=== PATIENT | female | born 1965 | race Two or more races ===

== ENCOUNTER → 2024-03-19 | Outpatient (CLI) | payer BC, SELFPAY ==
--- NOTE | 2024-03-19 08:15 | XR_ITS ---
Examination: Screening digital mammography, bilateral Computer aided detection 3-D breast Tomosynthesis, bilateral Date and time of exam: March 19, 2024 0805 hours Compared to mammograms dating to August 12, 2019 Indication: Screening Technique: Nonmagnified MLO, CC views of the breasts to been obtained, reconstructed from 3-D Tomosynthesis images. R2 computer aided detection program utilized for evaluation of suspicious masses and/or abnormal calcifications. 3-D Tomosynthesis images obtained. Findings: Scattered areas of fibroglandular density Benign calcifications No interval suspicious masses Impression: BI-RADS category II: Benign Findings. Recommend 1 year follow-up mammogram.
== END | disposition home or self-care (01) ==
LOC: CDIM 07:59
PROVIDERS: PCP Registered Nurse; Referring Provider Registered Nurse; Visit Provider Registered Nurse
DX: Z12.31 Encounter for screening mammogram for malignant neoplasm of breast (principal); R92.323 Mammographic fibroglandular density, bilateral breasts; R92.1 Mammographic calcification found on diagnostic imaging of breast
CPT/HCPCS: 77063; 77067

== ENCOUNTER 2024-05-07 09:21 | Emergency (ER) | payer BC, SELFPAY ==
[2024-05-07 09:36] VITALS: BP 157/90; PULSE 84; RESP 16; TEMP 37.2; O2SAT 95; BMI 28.0
--- NOTE | 2024-05-07 09:45 | EDRME_ITS ---
Rapid Medical Screening Exam [facility] Arrival date/time: 05/07/24 09:21 59-year-old female presents to the emergency department complaints of left-sided sore throat and muffled voice Chief Complaint: General Adult/Misc Complain Vital signs: Vital Signs Temperature 99.0 F 05/07/24 09:36 Pulse Rate 84 05/07/24 09:36 Respiratory Rate 16 05/07/24 09:36 Blood Pressure 157/90 H 05/07/24 09:36 Pulse Oximetry (%) 95 05/07/24 09:36 Oxygen Delivery Method Room Air 05/07/24 09:36
[2024-05-07 10:27] LABS: Strep A Rapid Negative (Negative)
[2024-05-07 10:29] LABS: Basophils % (Auto) 0 % (0-2.5); Eosinophils % (Auto) 0 % (0-10); Hematocrit 38.3 % (36.0-46.0); Hemoglobin 13.1 g/dL (12.0-16.0); Immature Granulocytes % (Auto) 0 % (0-0); Immature Granulocytes Auto 0.05 Thou/mm3 (0.00-0.00); Lymphocytes # (Auto) 0.8 Thou/mm3 (1.0-4.8); Lymphocytes % (Auto) 5 % (10-50); Mean Corpuscular HGB Conc 34.2 g/dl (31.0-37.0); Mean Corpuscular Volume 91 fL (80-100); Monocytes # (Auto) 0.3 Thou/mm3 (0.0-0.8); Monocytes % (Auto) 2 % (0-12); Neutrophils # (Auto) 14.9 Thou/mm3 (1.8-7.7); Neutrophils % (Auto) 93 % (37-80); Nucleated Red Blood Cell % 0 /100 WBC (0); Platelet Count 357 Thou/mm3 (140-440); RDW Standard Deviation 43.9 fL (36.4-46.3); Red Blood Count 4.23 Miln/mm3 (4.00-5.20)
[2024-05-07 10:48] LABS: Alanine Aminotransferase 63 U/L (10-49); Albumin, Serum 5.2 gm/dL (3.4-4.8); Albumin/Globulin Ratio 1.8 (1.2-2.2); Alkaline Phosphatase 149 U/L (46-116); Anion Gap 11 (7-16); Aspartate Amino Transferase 24 U/L (0-34); BUN/Creatinine Ratio 25 Ratio (12-20); Bilirubin,Total 0.6 mg/dL (0.3-1.2); Blood Urea Nitrogen 15 mg/dL (9-23); C-Reactive Protein 6.2 mg/dL (0.0-0.9); Calcium 9.9 mg/dL (8.3-10.6); Calcium (Corrected) 9.9 mg/dL (8.5-10.1); Carbon Dioxide 22.8 mMol/L (20.0-31.0); Chloride 106 mMol/L (98-107); Creatinine (Component) 0.6 mg/dL (0.6-1.3); Globulin 2.9 gm/dL (2.3-3.5); Glucose 117 mg/dL (74-106); Osmolality,Calculated 281 (275-295); Potassium 3.7 mMol/L (3.4-5.1); Sodium 140 mMol/L (136-145); Total Protein 8.1 gm/dL (5.7-8.2); eGFR > 60 See Note
--- NOTE | 2024-05-07 12:30 | PD.EDADULT ---
ED General RME/HPI General Chief complaint: General Adult/Misc Complain Stated complaint: sent by PCP for scan , sore throat/ swelling/pain Time Seen by Provider: 05/07/24 10:29 Arrival date/time: 05/07/24 09:21 RME / HPI RME / HPI narrative: 05/07/24 09:21 59-year-old female presents to the emergency department complaints of left-sided sore throat and muffled voice This section includes all my notes and documentations, including HPI, PE, and ED course.? Naveen Sylvester MD HPI: 59 year old female presents to the ED sent by PCP for evaluation of sore throat and rule out abscess. States her sore throat began 3 days ago and progressively worsening since. Accompanied by sinus pressure. Reportedly had consulted with PCP who prescribed sinus spray and has used without improvement. Returned to her PCP today who advised she come in for CT scan to rule out abscess. Denies fevers, difficulty swallowing, drooling, or difficulty breathing. No other complaints. ROS: All negative except as documented in HPI. Physical Exam: General:? Alert and oriented.? No acute distress when remaining still.?? Eyes:? Conjunctivae and lids clear.? ENT:? No nasal congestion.??Pharynx erythematous with left tonsillar edema and erythema and exudate. Neck:? Supple.? No lymphadenopathy. Heart:? RRR.? Lungs:? No respiratory distress.? Good air movement.? Skin:? Warm and dry.?? Neuro:? Alert and oriented X 3.?? I reviewed all diagnostic test results. My review of the CT report is?findings most consistent with 11 x 13 mm left tonsillar abscess Blood tests unremarkable. Strep/mono negative. At this point, diagnoses include?tonsillitis. Treatment here included?Augmentin and prednisone and two Tylenol #3. Significant improvement noted. Recommended a trial of outpatient treatment. Based on my best medical judgment, made decision no further evaluation or treatment indicated at this time.? Patient understands and agrees to the discharge instructions customized and printed, see below. Discharge Instructions from Dr. Sylvester printed for you: 1. Take Augmentin to kill the germs causing your severe infection of your left tonsil. 2. Prednisone to decrease the swelling and inflammation. 3. Ibuprofen 400 mg every 6-8 hours today and tomorrow to decrease further inflammation then as needed. 4. Tylenol with codeine for severe pain. 5. See a private doctor on 05/09/2024 for recheck and further care. Ask for a referral to see ENT specialist to help you get completely better. 6. Seek immediate medical care with worsening or with any concerns. Naveen Sylevster MD Related Data Previous Rx's ?Medication ?Instructions ?Recorded acetaminophen 300 mg-codeine 30 mg 2 tab PO TID PRN pain #20 tabs 05/07/24 tablet amoxicillin 600 mg-potassium 5 ml PO BID 10 days #100 mL 05/07/24 clavulanate 42.9 mg/5 mL oral suspension (Augmentin ES-) prednisone 20 mg tablet 40 mg PO BID 5 days #20 tabs 05/07/24 Allergies Allergy/AdvReac Type Severity Reaction Status Date / Time NKA Allergy Unknown Uncoded 05/07/24 09:23 Review of Systems Review of Systems Systems Reviewed: All systems reviewed, normal except as documented Past Medical History Social History SMOKING STATUS: Never smoker ED Exam Narrative Physical exam: As noted in HPI Course Quality Measures none Orders Category Date Time Status CT soft tissue neck wo con Stat Exams 05/07/24 13:23 Completed CBC Stat Lab 05/07/24 10:09 Completed CMP [Comprehensive Metabolic Panel] Stat Lab 05/07/24 10:09 Completed CRP [C-Reactive Protein] Stat Lab 05/07/24 10:09 Completed [place] Screen Stat Lab 05/07/24 10:09 Completed Strep A Rapid Stat Lab 05/07/24 10:11 Completed Dexamethasone Inj [Decadron Inj] Med 05/07/24 09:44 Discontinued 10 mg PO X1 ONE Vital Signs Vital signs: Vital Signs Temperature 99.0 F 05/07/24 09:36 Pulse Rate 84 05/07/24 09:36 Respiratory Rate 16 05/07/24 09:36 Blood Pressure 157/90 H 05/07/24 09:36 Pulse Oximetry (%) 95 05/07/24 09:36 Oxygen Delivery Method Room Air 05/07/24 09:36 Pulse ox is 95% on room air which is adequate. [facility] Patient data External records reviewed:: [facility] previous records (Per EMR review, patient has no previous visits ) Clinical information provided by:: patient Social determinants that could affect healthcare access:: none Patient has the following chronic illnesses:: None reported How is presenting disease/condition affected by chronic disease/condition?: no chronic disease Evaluation data The following diagnostics were reviewed and interpreted by me:: lab results and radiology exam(s) Lab and/or radiology exams considered but not ordered:: none Interpretation Summary: Tonsillitis Medications Medications considered but not ordered:: None Medication administrations:: Medication Administration History Discontinued Medications Dexamethasone Sodium Phosphate (Dexamethasone Sod Phos Inj 10 Mg/Ml Vial) 10 mg PO X1 ONE Stop: 05/07/24 09:45 Last Admin: 05/07/24 14:17 Dose: 10 mg Documented By: Patient was given dexamethasone. Consultations Consultation(s) initiated? (list below): No Diagnosis Differential Diagnosis ED Complaint MDM: Tonsillitis, peritonsillar abscess, strep throat, mono Most likely diagnosis given after review of the tests above:: Tonsillitis Admission Indicated Admission indicated?: not indicated Explain why admission is indicated or not indicated:: does not meet admission criteria Admission Request Was there a request for admission?: No Disposition Plan Disposition Plan: Discharge Discharge Attestation Discharge Attestation: The patient and all family members were given an opportunity to ask questions and understood the discharge instructions. Discharge instructions specifically effects, indications for sooner follow up or return to the emergency department, and the expected course of current diagnosis. Patient condition: Stable Medical Decision Making Differential Diagnosis Differential Diagnosis: Tonsillitis, peritonsillar abscess, strep throat, mono Lab Data 05/07/24 10:09 05/07/24 10:09 Labs: Lab Results 05/07/24 05/07/24 Range/Units 10:09 10:11 WBC 16.0 H (3.6-11.0) Thou/mm3 RBC 4.23 (4.00-5.20) Miln/mm3 Hgb 13.1 (12.0-16.0) g/dL Hct 38.3 (36.0-46.0) % MCV 91 (80-100) fL MCH 31.0 (25.0-35.0) pg MCHC 34.2 (31.0-37.0) g/dl RDW Std Deviation 43.9 (36.4-46.3) fL Plt Count 357 (140-440) Thou/mm3 Neut % (Auto) 93 H (37-80) % Lymph % (Auto) 5 L (10-50) % [place] % (Auto) 2 (0-12) % Eos % (Auto) 0 (0-10) % Baso % (Auto) 0 (0-2.5) % Neut # (Auto) 14.9 H (1.8-7.7) Thou/mm3 Lymph # (Auto) 0.8 L (1.0-4.8) Thou/mm3 [place] # (Auto) 0.3 (0.0-0.8) Thou/mm3 Eos # (Auto) 0.0 (0.0-0.5) Thou/mm3 Baso # (Auto) 0.0 (0.0-0.2) Thou/mm3 Immature Gran # (Auto) 0.05 H (0.00-0.00) Thou/mm3 Absolute Nucleated RBC 0.00 (0.00-0.00) Thou/mm3 Immature Gran % 0 (0-0) % Nucleated RBC % 0 (0) /100 WBC Sodium 140 (136-145) mMol/L Potassium 3.7 (3.4-5.1) mMol/L Chloride 106 (98-107) mMol/L Carbon Dioxide 22.8 (20.0-31.0) mMol/L Anion Gap 11 (7-16) BUN 15 (9-23) mg/dL Creatinine 0.6 (0.6-1.3) mg/dL Estim Creat Clear Calc 91.0 (>60) mL/min eGFR > 60 (60 - ) See Note BUN/Creatinine Ratio 25 H (12-20) Ratio Glucose 117 H (74-106) mg/dL Calculated Osmolality 281 (275-295) Calcium 9.9 (8.3-10.6) mg/dL Corrected Calcium 9.9 (8.5-10.1) mg/dL Total Bilirubin 0.6 (0.3-1.2) mg/dL AST 24 (0-34) U/L ALT 63 H (10-49) U/L Alkaline Phosphatase 149 H (46-116) U/L C-Reactive Prot, Quant 6.2 H (0.0-0.9) mg/dL Total Protein 8.1 (5.7-8.2) gm/dL Albumin 5.2 H (3.4-4.8) gm/dL Globulin 2.9 (2.3-3.5) gm/dL Albumin/Globulin Ratio 1.8 (1.2-2.2) Monoscreen Negative (Negative) Group A Strep Rapid Negative (Negative) Discharge Plan Plan Patient Disposition: HOME (Self Care) Prescriptions/Referrals Prescriptions/Med Rec: New amoxicillin-pot clavulanate [Augmentin ES-600] 600-42.9 mg/5 mL suspension for reconstitution 5 ml PO BID 10 Days Qty: 100 0RF prednisone 20 mg tablet 40 mg PO BID 5 Days Qty: 20 0RF Taper: Prednisone Taper 20 mg DAILY for 2 Days and 0 Hour 10 mg DAILY for 2 Days and 0 Hour 5 mg DAILY for 7 Days and 0 Hour acetaminophen-codeine 300-30 mg tablet 2 tab PO TID MDD 6 PRN (Reason: pain) Qty: 20 0RF Referrals: Silvio Bosch MD [Primary Care Provider] - In 1 week Problem List Clinical Impression: Tonsillitis Patient/Caregiver Discharge Instructions Discharge Activity: activity as tolerated Education Materials: ED Tonsillitis (Child) Additional Instructions: Discharge Instructions from Dr. Sylvester printed for you: 1. Take Augmentin to kill the germs causing your severe infection of your left tonsil. 2. Prednisone to decrease the swelling and inflammation. 3. Ibuprofen 400 mg every 6-8 hours today and tomorrow to decrease further inflammation then as needed. 4. Tylenol with codeine for severe pain. 5. See a private doctor on 05/09/2024 for recheck and further care. Ask for a referral to see ENT specialist to help you get completely better. 6. Seek immediate medical care with worsening or with any concerns. Print Language: Hong Konger Stand Alone Forms: Sherry Award Info., Patient Portal Info Letter
--- NOTE | 2024-05-07 13:21 | PC.NURSE ---
CALLED PATIENT IN THE LOBBY AND OUTSIDE, NO ANSWER RECEIVED FROM PATIENT.
--- NOTE | 2024-05-07 13:23 | XR_ITS ---
Examination: CT soft tissue neck, without intravenous contrast. 2-D coronal reconstructions. 2-D sagittal reconstructions. Date and time of exam :May 07, 2024 1313 hours INDICATIONS: Sore throat and swelling in the neck 4 days. CTDI: vol (mGy):13.3 DLP: (mGycm):342 Technique: 1.25 mm axial sections of the neck of the obtained. Coronal and sagittal reconstructions have been obtained. No intravenous contrast Low dose protocols were performed. One or more of the following dose reduction techniques were used; automated exposure control, adjustment of the mA and/or KV according to patient size, use of iterative reconstruction technique. Findings: Maxillary antra are clear Soft tissue left tonsillar prominence with 11 x 13 mm low density area consistent with abscess in the left tonsil The larynx is unremarkable 4 mm left thyroid nodule Normal epiglottis IMPRESSION: Findings most consistent with 11 x 13 mm left tonsillar abscess Consider follow-up imaging during or post treatment
[2024-05-07 14:07] LABS: Mono Screen Negative (Negative)
[2024-05-07] MEDS: DEXAMETHASONE SOD PHOS INJ 10 MG/ML VIAL PO (14:17)
--- NOTE | 2024-05-07 14:27 | PC.NURSE ---
Patient NA x2, was not in lobby but currently back in lobby and recieved her medication. MD Sylvester spoke with patient and will do discharge papers. Patient is waiting in lobby currently.
== END 2024-05-07 15:45 | disposition home or self-care (01) ==
PROVIDERS: Nurse Practitioner Primary Care; Emergency Provider Emergency Medicine; PCP Family Medicine
DX: J03.90 Acute tonsillitis, unspecified (principal)
CPT/HCPCS: 36415; 70490; 80053; 85025; 86140; 86308; 87651; 99284; J1100

== ENCOUNTER → 2024-05-08 | Outpatient (CLI) | payer BC, SELFPAY ==
--- NOTE | 2024-05-08 12:41 | EKG_ITS ---
[facility] Test Date: 2024-05-08 Pat Name: CHARANJIT TREJO Department: Room: - Gender: Female Us Administrative Law Judge: MARBIN : 1965 Requested By: Ronald Taylor Order Number: [id number] Reading MD: Ronald Taylor Measurements Intervals [place] Rate: 73 P: 33 MI: 122 QRS: 35 QRSD: 75 T: 32 QT: 361 QTc: 400 Interpretive Statements SINUS RHYTHM No previous ECG available for comparison /store/S0/[id number]/ecg/[id number].pdf
== END | disposition home or self-care (01) ==
LOC: SEKG 12:35
PROVIDERS: PCP Registered Nurse; Referring Provider Specialist; Visit Provider Specialist
DX: Z01.810 Encounter for preprocedural cardiovascular examination (principal)
CPT/HCPCS: 93005

== ENCOUNTER 2024-10-12 15:55 | Emergency (ER) | payer BC, SELFPAY ==
[2024-10-12 16:22] VITALS: BP 138/79; PULSE 68; RESP 20; TEMP 36.9; O2SAT 97
--- NOTE | 2024-10-12 16:54 | XR_ITS ---
Examination: Wrist, left 2 views Technique: Wrist AP, lateral 2 views Date and time of exam: October 12, 2024, 1726 hours INDICATIONS: Injured the wrist today, wrist pain. FINDINGS: Acute impacted mildly angulated fracture distal radial metaphysis Carpal bones intact IMPRESSION: Acute impacted fracture distal radial metaphysis
[2024-10-12] MEDS: IBUPROFEN TAB 400 MG TABLET 800 MG PO (17:01)
--- NOTE | 2024-10-12 17:18 | PD.EDRME ---
Rapid Medical Screening Exam E Arrival date/time: 10/12/24 15:55 This is a 59-year-old female that comes into the emergency room with complaint of left wrist pain after fall. Patient denies any other trauma. I have greeted and performed a focused initial assessment of this patient. Initial appropriate labs ordered at this time. A comprehensive ED assessment and evaluation of the patient and analysis of all test and completion of medical decision making process will be conducted by additional ED provider. Chief Complaint: Hand/Wrist Problems Time Seen by Provider: 10/12/24 16:31 Vital signs: Vital Signs Temperature 98.4 F 10/12/24 16:22 Pulse Rate 68 10/12/24 16:22 Respiratory Rate 20 10/12/24 16:22 Blood Pressure 138/79 H 10/12/24 16:22 Pulse Oximetry (%) 97 10/12/24 16:22 Oxygen Delivery Method Room Air 10/12/24 16:22
--- NOTE | 2024-10-12 20:59 | PD.EDHAND ---
Upper Extremity Injury RME/HPI General Chief Complaint: Hand/Wrist Problems Stated Complaint: LEFT WRIST INJURY Time Seen by Provider: 10/12/24 16:31 Source: patient Arrival date/time: 10/12/24 15:55 This is a case of 59-year-old female who came in in the emergency room due to left wrist injury history of present illness started around 3 PM and the patient was walking in the street accidentally tripped and fell and landed on her left wrist sustaining pain and swelling no other injury noted no loss of consciousness no head neck chest or abdominal injury Limitations: no limitations RME / HPI RME / HPI narrative: 10/12/24 15:55 This is a 59-year-old female that comes into the emergency room with complaint of left wrist pain after fall. Patient denies any other trauma. I have greeted and performed a focused initial assessment of this patient. Initial appropriate labs ordered at this time. A comprehensive ED assessment and evaluation of the patient and analysis of all test and completion of medical decision making process will be conducted by additional ED provider. Related Data Previous Rx's ?Medication ?Instructions ?Recorded acetaminophen 300 mg-codeine 30 mg 2 tab PO TID PRN pain #20 tabs 05/07/24 tablet hydrocodone 5 mg-acetaminophen 325 1 tab PO Q6H PRN pain #15 tabs 10/12/24 mg tablet Allergies Allergy/AdvReac Type Severity Reaction Status Date / Time NKA Allergy Unknown Uncoded 10/12/24 15:57 Review of Systems Review of Systems Systems Reviewed: All systems reviewed, normal except as documented Constitutional Constitutional: Reports system reviewed and no additional complaints, except as documented and Reports as per HPI Cardiovascular Cardiovascular: Reports system reviewed and no additional complaints, except as documented and Reports as per HPI Respiratory Respiratory: Reports system reviewed and no additional complaints, except as documented and Reports as per HPI Gastrointestinal Gastrointestinal: Reports system reviewed and no additional complaints, except as documented and Reports as per HPI Genitourinary Genitourinary: Reports system reviewed and no additional complaints, except as documented and Reports as per HPI Musculoskeletal Musculoskeletal: Reports system reviewed and no additional complaints, except as documented, Reports as per HPI and Reports other (Left wrist pain) Integumentary/Breasts Skin/Breast: Reports system reviewed and no additional complaints, except as documented and Reports as per HPI Neurologic Neurologic: Reports system reviewed and no additional complaints, except as documented and Reports as per HPI Past Medical History Social History SMOKING STATUS: Never smoker ED Exam General Limitations: Present no limitations General appearance: Present alert and in no apparent distress Head Head exam: Present atraumatic Eye Eye exam: Present normal appearance, PERRL and EOMI ENT ENT exam: Present normal exam, normal oropharynx and mucous membranes moist Neck Neck exam: Present normal inspection, full ROM and trachea midline Chest Chest inspection: Present normal inspection and symmetric chest wall rise; Absent tenderness, rash or abscess Respiratory Respiratory exam: Present normal lung sounds bilaterally; Absent respiratory distress, wheezes, stridor, accessory muscle use or prolonged expiratory phase Cardiovascular Cardiovascular exam: Present regular rate, normal rhythm and normal heart sounds; Absent bradycardia, tachycardia, irregular rhythm, systolic murmur or diastolic murmur Abdominal Exam Abdominal exam: Present soft and normal bowel sounds Extremities Exam Extremities exam: Present normal inspection and full ROM Expanded Upper Extremity Exam Forearm/Wrist exam: Present normal inspection, tenderness, swelling, deformity and other (Noted moderate tenderness dorsal aspect of the left wrist no crepitation angular deformity with mild swelling ROM is limited due to pain sensory intact reflex normal no snuffbox tenderness neurovascular intact); Absent abrasion, laceration, ecchymosis, crepitus, dislocation, erythema, tenderness over anatomical snuff box or pain with axial thumb loading Hand exam: Present normal inspection and full ROM; Absent tenderness or swelling Back Exam Back exam: Present normal inspection and full ROM Neurological Exam Neurological exam: Present alert, oriented X3, CN II-XII intact, normal gait and reflexes normal; Absent motor sensory deficit Psychiatric Psychiatric exam: Present normal affect and normal mood Skin Skin exam: Present warm, dry, intact and normal color Course Quality Measures none Orders Category Date Time Status Splint / Immobilizer STAT Care 10/12/24 20:55 Active XR wrist LT 2V Stat Exams 10/12/24 16:54 Completed HYDROcodone*/APAP 5/325 [[place] 5/325] Med 10/12/24 20:55 Once 1 tab PO X1 ONE Ibuprofen Tab [Motrin Tab] Med 10/12/24 16:54 Discontinued 800 mg PO X1 ONE Vital Signs Vital signs: Vital Signs Temperature 98.4 F 10/12/24 16:22 Pulse Rate 68 10/12/24 16:22 Respiratory Rate 20 10/12/24 16:22 Blood Pressure 138/79 H 10/12/24 16:22 Pulse Oximetry (%) 97 10/12/24 16:22 Oxygen Delivery Method Room Air 10/12/24 16:22 Oxygen saturation 97% in room air Extremity Injury MDM Narrative MDM Narrative:: This is a case of 59-year-old female who came in in the emergency room due to left wrist injury history of present illness started around 3 PM and the patient was walking in the street accidentally tripped and fell and landed on her left wrist sustaining pain and swelling no other injury noted no loss of consciousness no head neck chest or abdominal injury physical examination patient is awake alert oriented not in distress nontoxic looking patient received exam This is a case of 59-year-old female who came in in the emergency room due to left wrist injury history of present illness started around 3 PM and the patient was walking in the street accidentally tripped and fell and landed on her left wrist sustaining pain and swelling no other injury noted no loss of consciousness no head neck chest or abdominal injury x-ray showed a impacted fracture of the distal metaphysis radial of the left wrist splint was applied patient tolerated well neurovascular intact patient discussed the result of the x-ray she will follow-up with PCP to be referred to Ortho for further evaluation and treatment of the wrist fracture RICE treatment will continue by the patient at home [place] was prescribed for pain Patient was discharged with comfortable condition walking with stable gait. Patient verbalized no further complains explained diagnosis and answered patient question. Patient is comfortable with the proposed management plan including the need to follow up with his/her primary care physician and any specialist if applicable Discussed patient for any urgent condition or worsening sx, He/She needed to go to emergency room immediately or call 911. Patient acknowledge the responsibility to follow up as instructed and to monitor her/his symptoms. For any persistence of the symptoms for more than 3-5 days return precaution advised. Discussed the result of the test and was given printed discharge instruction Patient data External records reviewed:: [facility] previous records Clinical information provided by:: patient Social determinants that could affect healthcare access:: none Patient has the following chronic illnesses:: None How is presenting disease/condition affected by chronic disease/condition?: no chronic disease Evaluation data The following diagnostics were reviewed and interpreted by me:: radiology exam(s) Lab and/or radiology exams considered but not ordered:: Reviewed Interpretation Summary: Reviewed Medications / Prescriptions Medications or Prescriptions considered but not ordered:: Given Medication administrations:: Medication Administration History Hydrocodone Bitart/Acetaminophen (Hydrocodone/Apap 5/325 Tablet) 1 tab PO X1 ONE Stop: 10/12/24 20:56 Discontinued Medications Ibuprofen (Ibuprofen Tab 400 Mg Tablet) 800 mg PO X1 ONE Stop: 10/12/24 16:55 Last Admin: 10/12/24 17:01 Dose: 800 mg Documented By: KF Given Consultations Consultation(s) initiated? (list below): No Diagnosis Upper Extremity Injury Differential Diagnosis: other (Wrist fracture) Most likely diagnosis given after review of the tests above:: Distal radial fracture Admission Indicated Admission indicated?: not indicated Explain why admission is indicated or not indicated:: Not indicated Admission Request Was there a request for admission?: No Admission Attestation Admission request attestation: Not indicated Disposition Plan Disposition Plan: Discharge Discharge Attestation Discharge Attestation: The patient and all family members were given an opportunity to ask questions and understood the discharge instructions. Discharge instructions specifically effects, indications for sooner follow up or return to the emergency department, and the expected course of current diagnosis. Patient condition: Stable Discharge Plan Plan Patient Disposition: HOME (Self Care) Patient condition on transfer: Stable Prescriptions/Referrals Prescriptions/Med Rec: New hydrocodone-acetaminophen 5-325 mg tablet 1 tab PO Q6H MDD max 4 tabs per day PRN (Reason: pain) Qty: 15 0RF No Action acetaminophen-codeine 300-30 mg tablet 2 tab PO TID MDD 6 PRN (Reason: pain) Qty: 20 0RF Referrals: Silvio Bosch MD [Primary Care Provider] - In 1 week Sidney Baca MD [Physician] - 10/13/24 (For further evaluation and treatment of distal metaphysis radial fracture) Problem List Clinical Impression: Closed fracture of metaphysis of distal end of left radius Patient/Caregiver Discharge Instructions Education Materials: Wrist Fracture, ED Splint Care, Fiberglass, ED RICE Additional Instructions: Follow-up with your primary care physician in 2 days for reevaluation and to be referred to orthopedic surgeon for further evaluation and treatment of distal radial metaphyseal fracture left wrist worsening symptoms or any emergent concern call 911 or go to the nearest emergency room ice pack every 2 hours for 20 minutes for 24 hours then alternate with warm compress elevate to decrease swelling keep the splint in place and until cleared by your primary care physician take your medication as directed Print Language: Maldivian Stand Alone Forms: Sherry Award Info., Patient Portal Info Letter PA/PORTFOLIO ARCHITECT Supervising Physician PA/PORTFOLIO ARCHITECT Supervising Physician: dr guerrero
== END 2024-10-12 21:19 | disposition home or self-care (01) ==
PROVIDERS: Emergency Provider Emergency Medicine; PCP Family Medicine
DX: S52.502A Unspecified fracture of the lower end of left radius, initial encounter for closed fracture (principal); W01.0XXA Fall on same level from slipping, tripping and stumbling without subsequent striking against object, initial encounter; Y93.01 Activity, walking, marching and hiking
CPT/HCPCS: 29125; 73100; 99283; A4565; A9270

== ENCOUNTER → 2025-02-26 | Outpatient (CLI) | payer BC, SELFPAY ==
[2025-02-26 07:52] LABS: Collection Type, Urine Clean Catch
[2025-02-26 08:24] LABS: Basophils # (Auto) 0.1 Thou/mm3 (0.0-0.2); Basophils % (Auto) 1 % (0-2.5); Eosinophils # (Auto) 0.5 Thou/mm3 (0.0-0.5); Eosinophils % (Auto) 6 % (0-10); Hematocrit 37.7 % (36.0-46.0); Hemoglobin 12.6 g/dL (12.0-16.0); Immature Granulocytes Auto 0.02 Thou/mm3 (0.00-0.00); Lymphocytes # (Auto) 2.9 Thou/mm3 (1.0-4.8); Lymphocytes % (Auto) 40 % (10-50); Mean Corpuscular HGB Conc 33.4 g/dl (31.0-37.0); Mean Corpuscular Hemoglobin 30.7 pg (25.0-35.0); Mean Corpuscular Volume 92 fL (80-100); Monocytes # (Auto) 0.6 Thou/mm3 (0.0-0.8); Monocytes % (Auto) 8 % (0-12); Neutrophils # (Auto) 3.3 Thou/mm3 (1.8-7.7); Neutrophils % (Auto) 44 % (37-80); Nucleated Red Blood Cell # 0.00 Thou/mm3 (0.00-0.00); Nucleated Red Blood Cell % 0 /100 WBC (0); Platelet Count 304 Thou/mm3 (140-440); RDW Standard Deviation 45.5 fL (36.4-46.3); Red Blood Count 4.10 Miln/mm3 (4.00-5.20); White Blood Count 7.3 Thou/mm3 (3.6-11.0)
[2025-02-26 08:28] LABS: Glucose Estimated Average 114 mg/dL (80-131); Hemoglobin A1C 5.6 % Hgb (4.8-6.0)
[2025-02-26 08:29] LABS: Bilirubin,Urine Negative (Negative); Blood,Urine Negative (Negative); Clarity,Urine Clear (Clear/Hazy); Color,Urine Lt-Yellow (Lt Yel-Yel); Culture Indicated,Urine Not Indicated; Glucose, Urine Negative (Negative); Ketones,Urine Negative (Negative); Leukocyte Esterase,Urine Positive (Negative); Nitrite,Urine Negative (Negative); PH,Urine 6.0 (5.0-7.0); Protein,Urine Negative (Neg - Trace); RBC,Urine 1 /hpf (0-3); Specific Gravity,Urine 1.021 (1.001-1.035); Squamous Epithelial Cell,Urine 4 /hpf (0-5); Urobilinogen,Urine Negative mg/dL (0.0-1.0); WBC,Urine 2 /hpf (0-5)
[2025-02-26 08:37] LABS: Vitamin D 25 Hydroxy Total 26.5 ng/mL (7.3-40.2)
[2025-02-26 08:40] LABS: Alanine Aminotransferase 20 U/L (10-49); Albumin, Serum 4.6 gm/dL (3.4-4.8); Albumin/Globulin Ratio 2.3 (1.2-2.2); Alkaline Phosphatase 139 U/L (46-116); Anion Gap 9 (7-16); Aspartate Amino Transferase 18 U/L (0-34); BUN/Creatinine Ratio 27 Ratio (12-20); Bilirubin,Total 0.5 mg/dL (0.3-1.2); Blood Urea Nitrogen 19 mg/dL (9-23); Calcium 9.3 mg/dL (8.3-10.6); Calcium (Corrected) 9.3 mg/dL (8.5-10.1); Carbon Dioxide 28.0 mMol/L (20.0-31.0); Cardiac Risk Estimate 2.4 RATIO (3.7-5.6); Chloride 107 mMol/L (98-107); Cholesterol 203 mg/dL (132-200); Creatinine (Component) 0.7 mg/dL (0.6-1.3); Globulin 2.0 gm/dL (2.3-3.5); Glucose 87 mg/dL (74-106); HDL Cholesterol 86 mg/dL (40-60); LDL Cholesterol,Calculated 96 mg/dL (0-130); Osmolality,Calculated 288 (275-295); Potassium 4.1 mMol/L (3.4-5.1); Sodium 144 mMol/L (136-145); Thyroid Stimulating Hormone 5.50 uIU/mL (0.55-4.78); Total Protein 6.6 gm/dL (5.7-8.2); Triglycerides 106 mg/dL (30-150); eGFR > 60 See Note
== END | disposition home or self-care (01) ==
LOC: COPL 06:48
PROVIDERS: PCP Family Medicine; Referring Provider Nurse Practitioner Family; Visit Provider Nurse Practitioner Family
DX: Z00.00 Encounter for general adult medical examination without abnormal findings (principal); E55.9 Vitamin D deficiency, unspecified; R05.9 Cough, unspecified
CPT/HCPCS: 36415; 80053; 80061; 81001; 82306; 83036; 84443; 85025

== ENCOUNTER → 2025-03-23 | Outpatient (CLI) | payer BC, SELFPAY ==
--- NOTE | 2025-03-23 14:00 | XR_ITS ---
Examination: Screening digital mammography, bilateral Computer aided detection 3-D breast Tomosynthesis, bilateral Date and time of exam: March 23, 2025, 1415 hours, compared to mammograms dating to November 05, 2020 Indication: Screening Technique: Nonmagnified MLO, CC views of the breasts to been obtained, reconstructed from 3-D Tomosynthesis images. R2 computer aided detection program utilized for evaluation of suspicious masses and/or abnormal calcifications. 3-D Tomosynthesis images obtained. Findings: Scattered areas of fibroglandular density Stable focal asymmetry outer left breast on the CC view Benign calcifications No interval suspicious masses Impression: BI-RADS category II: Benign Findings. Recommend 1 year follow-up mammogram.
== END | disposition home or self-care (01) ==
LOC: CDIM 14:04
PROVIDERS: PCP Family Medicine; Referring Provider Nurse Practitioner Family; Visit Provider Nurse Practitioner Family
DX: Z12.31 Encounter for screening mammogram for malignant neoplasm of breast (principal); R92.323 Mammographic fibroglandular density, bilateral breasts; R92.1 Mammographic calcification found on diagnostic imaging of breast
CPT/HCPCS: 77063; 77067